=== PATIENT | female | born 1985 | race African-American/Black ===

== ENCOUNTER 2022-11-10 10:21 | Observation (INO) ==
[2022-11-10 11:55] LABS: ABS Lymphocytes 0.2 10^3/ul (1.0-4.8); ABS Monocytes 0.4 10^3/ul (0-0.8); ABS Neutrophils 2.3 10^3/ul (1.5-7.7); Eosinophil % 0.4 %; Hematocrit 34 % (35-47); Hemoglobin 10.7 g/dL (12.0-16.0); Mean Corpuscular HGB Conc 32 g/dL (31-36); Mean Corpuscular Hemoglobin 26 pg (27-31); Mean Corpuscular Volume 81 fL (80-97); Mean Platelet Volume 7.6 fL (7.4-10.4); Nucleated Red Blood Cells % 0.1; Platelet Count 278 10^3/uL (150-450); Red Blood Count 4.14 10^6 /uL (3.70-4.87); Red Cell Distribution Width 15 % (10-15); White Blood Count 2.8 10^3/uL (3.5-10.8)
[2022-11-10 12:52] LABS: ALT 12 U/L (7-52); Albumin 3.7 g/dL (3.2-5.2); Albumin/Globulin Ratio 1.5 (1-3); Alkaline Phosphatase 43 U/L (35-149); Blood Urea Nitrogen 9 mg/dL (6-24); CO2 Carbon Dioxide 21 mmol/L (22-32); Chloride 110 mmol/L (101-111); Globulin 2.4 g/dL (2-4); Glucose 74 mg/dL (70-100); Sodium 136 mmol/L (135-145); Total Protein 6.1 g/dL (6.4-8.9); eGFR CKD-EPI 118.5 (>60)
[2022-11-10 12:56] LABS: Anion Gap 5 mmol/L (2-11)
[2022-11-10 13:16] LABS: Vitamin B12 634 pg/mL (180-914)
[2022-11-10 15:13] LABS: Potassium Redraw 3.5 mmol/L (3.5-5.0)
[2022-11-10] MEDS ORDERED: LORazepam 2 mg VIAL 1 ml IV PUSH ONE ×2 (16:14→17:10)
[2022-11-10] MEDS ORDERED: Lorazepam PYXIS KEY PRN ×2 (16:14→17:10)
[2022-11-10] MEDS ORDERED: Gadoteridol (CONTRAST) 279.3 MG/ML 10 ML IV ONE (18:45)
[2022-11-10] MEDS ORDERED: methylPREDNISolone SOD SUCC 1000 MG ML VIAL IVPB ONE (21:48)
[2022-11-10] MEDS: Ondansetron ODT 4 mg TAB 4 MG TAB PO SCH (23:46)
[2022-11-11 00:45] LABS: Urine Appearance Clear; Urine Bilirubin Negative (Negative); Urine Blood Negative (Negative); Urine Color Yellow; Urine Glucose Negative (Negative); Urine Ketones Trace (Negative); Urine Nitrite Negative (Negative); Urine Protein Negative (Negative); Urine Urobilinogen 0.2 (Negative) (Negative)
[2022-11-11] MEDS: Ondansetron ODT 4 mg TAB 4 MG TAB PO SCH (08:59)
[2022-11-11] MEDS ORDERED: [UNRECOGNIZED DRUG - OTHER] PO SCH (09:00)
[2022-11-11] MEDS ORDERED: methylPREDNISolone SOD SUCC 1000 MG ML VIAL IVPB SCH ×2 (09:47→21:00)
[2022-11-11] MEDS ORDERED: methylPREDNISolone SOD SUCC 1,000 MG in NS 0.9% 250 ml 250 ML IVPB SCH ×3 (11:42→21:00)
[2022-11-11 12:20] VITALS: BP 117/78
== END 2022-11-11 12:20 | disposition home or self-care (01) ==
LOC: EDHOLD 10:21 → ED 10:21 → SUATTDRO 22:29 → EDHOLD 11-11 12:18
PROVIDERS: ADMIT Internal Medicine; ATTEND Internal Medicine